=== PATIENT | male | born 1970 | race Caucasian/White ===

== ENCOUNTER 2016-10-17 18:21 | Inpatient (IN) | payer OTHER ==
[2016-10-17] VITALS (140 sets, daily range): BP systolic 170; BP diastolic 105; PULSE 95; TEMP 97.6; O2SAT 92–100
[~2016-10-17] VITALS: Ht 182.9 cm; Wt 110.3 kg
[2016-10-17 18:49] LABS: BASO % 0.3 % (0.0-2.0); EOS % 0.6 % (0-4.0); GRAN # 2.7 (1.4-6.5); GRAN % 42.5 % (42.2-75.2); HEMATOCRIT 41.6 % (42.0-52.0); HEMOGLOBIN 14.1 g/dl (13.5-18.0); INR 0.9 (0.8-3.0); LYMPH # 2.6 (1.2-3.4); LYMPH % 40.7 % (20.0-51.0); MEAN CELL VOLUME 96 fl (80.0-100.0); MEAN CORPUSCULAR HEMOGLOBIN 32 pg (27.0-31.0); MEAN CORPUSCULAR HGB CONC 34 g/dl (33.0-37.0); MEAN PLATELET VOLUME 11.5 fl (7.4-10.4); MONO # 0.9 (0.1-0.6); MONO % 14.9 % (1.7-9.3); PROTHROMBIN TIME 10.4 SECONDS (9.7-12.8); RED BLOOD COUNT 4.35 M/mm3 (4.20-5.60); WHITE BLOOD COUNT 6.3 K/mm3 (4.8-10.8)
[2016-10-17 18:50] LABS: PLATELET COUNT 61 K/mm3 (130-400)
[2016-10-17 18:52] LABS: PARTIAL THROMBOPLASTIN TIME 24.9 SECONDS (26.0-37.0)
[2016-10-17 18:59] LABS: ADJUSTED CALCIUM 9.3 mg/dL (8.4-10.2); ALANINE AMINOTRANSFERASE 44 U/L (21-72); ALBUMIN 4.3 gm/dL (3.5-5.0); ALKALINE PHOSPHATASE 111 U/L (50-136); ANION GAP 11 mmol/L (7-16); BILIRUBIN,TOTAL 0.6 mg/dL (0.0-1.0); BLOOD UREA NITROGEN 16 mg/dL (9-20); CALCIUM 9.5 mg/dL (8.4-10.2); CARBON DIOXIDE 27 mmol/L (22-30); CHLORIDE 100 mmol/L (98-107); GLUCOSE 254 mg/dL (74-106); POTASSIUM 3.8 mmol/L (3.4-5.0); SODIUM 139 mmol/L (137-145); TOTAL PROTEIN 7.4 gm/dL (6.4-8.2)
[2016-10-17 19:11] LABS: B-TYPE NATRIURETIC PEPTIDE 29 pg/mL (0-125)
[2016-10-17 19:15] LABS: PROLACTIN 54.3 ng/mL (3.7-17.9)
[2016-10-17 19:18] LABS: TROPONIN-I < 0.012 ng/mL (0.000-0.034)
[2016-10-17] MEDS ORDERED: AMARYL 2MG T2 MG/TAB PO (21:04)
[2016-10-17] MEDS ORDERED: JANUVIA 100MG100 MG PO (21:05)
[2016-10-17] MEDS ORDERED: GLUCOPHAGE1000 MG PO (23:21)
[2016-10-17] MEDS ORDERED: ACTOS 15MG TAB15 MG PO (23:22)
[2016-10-17] MEDS ORDERED: PRAVACHOL 40MG40 MG PO (23:25)
[2016-10-17] MEDS ORDERED: VITAMIN D31000 IU PO (23:26)
[2016-10-17] MEDS ORDERED: GLUCOSAMIN 500 PO (23:26)
[2016-10-18] VITALS (518 sets, daily range): BP systolic 150–170; BP diastolic 94–111; PULSE 86–98; TEMP 98–100.1; O2SAT 73–100
[2016-10-18 01:28] LABS: PH 7 (5-8); SQUAMOUS EPITHELIAL 0-2 /hpf; URINE APPEARANCE Clear; URINE BACTERIA None Seen /hpf; URINE BILIRUBIN Negative (NEGATIVE); URINE BLOOD Negative (NEGATIVE); URINE COLOR Yellow; URINE GLUCOSE 3+ (NEGATIVE); URINE KETONE Trace (NEGATIVE); URINE RBC 0-2 /hpf; URINE UROBILINOGEN Negative (NEGATIVE); URINE WBC 0-2 /hpf
[2016-10-18 05:03] LABS: HEMATOCRIT 41.7 % (42.0-52.0); HEMOGLOBIN 14.4 g/dl (13.5-18.0); MEAN CELL VOLUME 94 fl (80.0-100.0); MEAN CORPUSCULAR HEMOGLOBIN 33 pg (27.0-31.0); MEAN CORPUSCULAR HGB CONC 35 g/dl (33.0-37.0); MEAN PLATELET VOLUME 11.5 fl (7.4-10.4); RED BLOOD COUNT 4.43 M/mm3 (4.20-5.60); REDCELL DISTRIBUTION WIDTH-CV 13.4 % (11.5-14.5); WHITE BLOOD COUNT 9.2 K/mm3 (4.8-10.8)
[2016-10-18 05:15] LABS: PLATELET COUNT 57 K/mm3 (130-400)
[2016-10-18 06:59] LABS: ADJUSTED CALCIUM 9.3 mg/dL (8.4-10.2); ALANINE AMINOTRANSFERASE 47 U/L (21-72); ALBUMIN 4.3 gm/dL (3.5-5.0); ALKALINE PHOSPHATASE 106 U/L (50-136); ANION GAP 14 mmol/L (7-16); BILIRUBIN,TOTAL 0.6 mg/dL (0.0-1.0); BLOOD UREA NITROGEN 12 mg/dL (9-20); CALCIUM 9.5 mg/dL (8.4-10.2); CARBON DIOXIDE 22 mmol/L (22-30); CHLORIDE 101 mmol/L (98-107); CHOLESTEROL 154 mg/dL (120-200); GLUCOSE 284 mg/dL (74-106); HDL CHOLESTEROL 57 mg/dL; LDL CHOLESTEROL 87 mg/dL; SODIUM 137 mmol/L (137-145); TOTAL PROTEIN 7.4 gm/dL (6.4-8.2); TRIGLYCERIDE 51 mg/dL
[2016-10-18 07:02] LABS: C-REACTIVE PROTEIN < 0.5 mg/dL (0.0-0.9)
[2016-10-18 22:55] LABS: HOMOCYSTEINE 4.2 umol/L (5.5-16.2)
[2016-10-19 10:01] LABS: FACTOR V LEIDEN MUTATION B Negative (Negative)
[2016-10-21 10:16] LABS: .ANTICARDIOLIPIN IGG <4.0 GPL (())
[2016-10-21 14:27] LABS: .ANTICARDIOLIPIN IGM <4.0 MPL (())
== END 2016-10-18 18:50 | disposition short-term general hospital (02) | DRG 65 ==
LOC: COL.ER 18:21 → ICU 20:15
PROVIDERS: Emergency Medicine; Psychiatry & Neurology Neurology
DX: I63.411 Cerebral infarction due to embolism of right middle cerebral artery (principal); G81.94 Hemiplegia, unspecified affecting left nondominant side; D61.9 Aplastic anemia, unspecified; D69.6 Thrombocytopenia, unspecified; E11.9 Type 2 diabetes mellitus without complications; I10 Essential (primary) hypertension; I65.21 Occlusion and stenosis of right carotid artery
CPT/HCPCS: 99223-AI; 99239; A4217; A4315; A9585; J1815; J7030; J7131